=== PATIENT | female | born 2000 | race Two or more races ===

== ENCOUNTER → 2019-08-12 07:04 | Outpatient (CLI) | payer OTHER | END | disposition home or self-care (01) | LOC: LAB 07:04 | DX: D64.89 Other specified anemias (principal); R74.0 Nonspecific elevation of levels of transaminase and lactic acid dehydrogenase [LDH]; N39.0 Urinary tract infection, site not specified; E78.49 Other hyperlipidemia; R76.8 Other specified abnormal immunological findings in serum ==

== ENCOUNTER 2019-11-27 10:10 | Outpatient (CLI) | payer OTHER | END 2019-11-27 15:00 | disposition home or self-care (01) | LOC: LAB 10:10 | DX: K74.0 Hepatic fibrosis (principal); K74.69 Other cirrhosis of liver; E78.49 Other hyperlipidemia ==

== ENCOUNTER 2020-01-29 09:38 | Outpatient (CLI) | payer OTHER | END 2020-01-29 09:42 | disposition home or self-care (01) | LOC: LAB 09:38 | PROVIDERS: ATTEND Dermatology | DX: R74.8 Abnormal levels of other serum enzymes (principal); E78.49 Other hyperlipidemia ==

== ENCOUNTER 2021-04-23 08:00 | Outpatient (CLI) | payer OTHER | END 2021-04-23 08:30 | disposition home or self-care (01) | LOC: PPH VACUNA 08:00 | PROVIDERS: ATTEND Emergency Medicine Pediatric Emergency Medicine | DX: Z23 Encounter for immunization (principal) ==

== ENCOUNTER 2023-05-17 08:56 | Emergency (ER) | payer OTHER ==
[~2023-05-17] VITALS: Ht 157.5 cm; Wt 50.8 kg
[2023-05-17 10:52] LABS: HEMATOCRIT 35.6 % (36.0-45.00); HEMOGLOBIN 11.6 g/dL (12.0-15.00); MEAN CELL VOLUME 71.5 fL (80.00-100.00); MEAN CORPUSCULAR HEMOGLOBIN 23.3 pg (27.00-32.0); MEAN CORPUSCULAR HGB CONC 32.5 g/dl (32.0-36.0); PLATELET COUNT 152 K/uL (150-450); RED BLOOD COUNT 4.98 M/uL (4.00-6.00); RED CELL DISTRIBUTION WIDTH 16.6 % (11.5-14.5)
[2023-05-17 11:15] LABS: ALKALINE PHOSPHATASE 56 U/L (50-136); ALT/SGPT 21 U/L (12-78); ANION GAP 8 (10.0-20.0); AST/SGOT 31 U/L (15-37); BILIRUBIN TOTAL 0.49 mg/dL (0.3-1.2); BLOOD UREA NITROGEN 12 mg/dL (7-18); BUN CREA RATIO 13 (7.0-25.0); CALCIUM 8.9 mg/dL (8.5-10.1); CARBON DIOXIDE 29 mEq/L (21-32); CHLORIDE 104 mmol/L (98-107); CREATININE SERUM 0.91 mg/dL (0.55-1.02); GFR 75.32; GLOBULINA 3.7 G/DL (2.4-3.5); GLUCOSE FASTING 101 mg/dL (65-100); OSMOLALITY SERUM 274 MOSM/KG (275-295); POTASSIUM 4.28 mEq/L (3.5-5.1); SODIUM 137 mmol/L (136-145); TOTAL PROTEIN 7.7 gm/dL (6.4-8.2)
[2023-05-17 11:35] LABS: PH,URINE 5.5 (5.0-8.0); URINE APPEARANCE Clear; URINE BILIRRUBIN Negative (NEGATIVE); URINE BLOOD Large; URINE COLOR Yellow; URINE GLUCOSE Negative (NEGATIVE); URINE LEUKOCYTE Negative; URINE NITRATE Negative; URINE PROTEIN 30 (NEGATIVE); URINE UROBILINOGEN 0.2 E.U./dl
[2023-05-17 11:36] LABS: URINE BACTERIA 519.1 uL (0.0-1933); URINE EPITHELIAL CELLS 17.6 uL (0.0-38.8); URINE RBC 1781.7 uL (0.0-20.8); URINE WBC 12.8 uL (0.0-23.2)
[2023-05-17 11:38] LABS: HCG QUANTITATIVE < 1 mUI/mL (1-3)
== END 2023-05-17 13:10 | disposition home or self-care (01) ==
LOC: ER 08:57
PROVIDERS: General Practice
DX: B34.9 Viral infection, unspecified (principal); R53.81 Other malaise; Z20.822 Contact with and (suspected) exposure to COVID-19